=== PATIENT | female | born 1975 | race Two or more races ===

== ENCOUNTER 2017-04-19 09:14 | Outpatient (CLI) | payer OTHER | END 2017-04-19 09:25 | disposition home or self-care (01) | LOC: RAD 09:14 | DX: J45.998 Other asthma (principal) ==

== ENCOUNTER 2017-04-22 06:15 | Day surgery (SDC) | payer OTHER ==
[2017-04-22] MEDS ORDERED: CODE1TAB37 PO (09:29)
[2017-04-22] MEDS ORDERED: DOXYCYCLINE HY100 MG PO (09:29)
== END 2017-04-22 12:40 | disposition home or self-care (01) ==
LOC: CIR.AMB 06:15
DX: D25.0 Submucous leiomyoma of uterus (principal); N84.0 Polyp of corpus uteri; N80.0 Endometriosis of uterus

== ENCOUNTER 2021-10-01 12:45 | Inpatient (IN) | payer OTHER ==
[~2021-10-01] VITALS: Ht 162.6 cm; Wt 58.1 kg
[~2021-10-01 12:45] MED LIST: CODE1TAB37 PO; DOXYCYCLINE HY100 MG PO
== END 2021-10-03 14:41 | disposition home or self-care (01) | DRG 743 ==
LOC: O/R 10-02 08:00 → OB/GYN 10-02 10:00
PROVIDERS: ADMIT Obstetrics & Gynecology; ATTEND Obstetrics & Gynecology
PROC: 0TJB8ZZ Inspection of Bladder, Via Natural or Artificial Opening Endoscopic (ICD-10-PCS; 2021-10-02)
PROC: 0UT9FZZ Resection of Uterus, Via Natural or Artificial Opening With Percutaneous Endoscopic Assistance (ICD-10-PCS; principal; 2021-10-02 10:00)
DX: D25.1 Intramural leiomyoma of uterus (principal); D25.0 Submucous leiomyoma of uterus; N72 Inflammatory disease of cervix uteri; N80.0 Endometriosis of uterus; Z20.822 Contact with and (suspected) exposure to COVID-19